=== PATIENT | male | born 1990 | race Caucasian/White ===

== ENCOUNTER 2022-09-12 09:18 | Emergency (ER) | payer OTHER ==
[~2022-09-12] VITALS: Ht 182.9 cm; Wt 81.7 kg
[2022-09-12] MEDS ORDERED: CEPHALEXIN500 M1 PO (10:19)
[2022-09-12 11:11] VITALS: BP 156/94
== END 2022-09-12 11:11 | disposition home or self-care (01) ==
LOC: ED 09:18
DX: S62.630A Displaced fracture of distal phalanx of right index finger, initial encounter for closed fracture (principal); W29.3XXA Contact with powered garden and outdoor hand tools and machinery, initial encounter; Z87.891 Personal history of nicotine dependence
CPT/HCPCS: 12002; 73140; 90471; 90715; 99283-25; A9270